=== PATIENT | male | born 1940 | race Caucasian/White ===

== ENCOUNTER 2018-10-11 06:23 | Observation (INO) | payer MEDICARE ==
[2018-10-11 07:53] LABS: Activated Partial Thrombo Time 31.6 seconds (26.0-36.3); INR 0.87 (0.77-1.02)
[2018-10-11 08:02] LABS: ABS Basophils 0 10^3/ul (0-0.2); ABS Eosinophils 0.2 10^3/ul (0-0.6); ABS Lymphocytes 1.2 10^3/ul (1.0-4.8); ABS Monocytes 0.4 10^3/ul (0-0.8); ABS Neutrophils 3.2 10^3/ul (1.5-7.7); ABS Nucleated RBC 0 10^3/ul; Eosinophil % 3.2 %; Hematocrit 44 % (42-52); Lymphocyte % 24.6 %; Mean Corpuscular HGB Conc 34 g/dl (31-36); Mean Corpuscular Hemoglobin 31 pg (27-31); Mean Corpuscular Volume 92 fL (80-94); Mean Platelet Volume 8.4 fL (7.4-10.4); Nucleated Red Blood Cells % 0; Platelet Count 157 10^3/ul (150-450); Red Blood Count 4.78 10^6/ul (4.00-5.40); Red Cell Distribution Width 13 % (10.5-15)
--- NOTE | 2018-10-11 08:04 | ED ---
Complex/Multi-Sys Presentation - HPI Summary HPI Summary: Patient presents with onset of left-sided headache and dizziness that started last evening. She reports the dizziness as more noticeable when he is up moving around. Does not seem to improve with any interventions although he reports he only tried water. He was able to sleep well last night. He describes the headache as dull and intermittent. He denies associated symptoms of change in vision, blurred vision, loss of vision, nausea, vomiting, rhinorrhea, ear congestion, sore throat, sneezing, coughing, chest pain, shortness of breath, numbness, tingling, near syncope/syncope, confusion. His reports he has not had any slurred speech or change in behavior. Furthermore, he denies any recent falls or head injury. 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 He reports his hips have been bothering him more so the past couple of days and the foot drop is gotten worse in regards to his ability to function. He has received care through physical therapy and chiropractic in the past for this issue which she reports were helpful and denies any recent injury, overuse or reason he can think for worsening of the symptoms. Has not tried anything to alleviate the symptoms nor has he followed up with his medical provider. Patient is overall healthy otherwise and denies taking any medications. He also admits he is not supposed to be taking any medications. - History Of Current Complaint Chief Complaint: EDDizziness Time Seen by Provider: 10/11/18 06:44 Hx Obtained From: Patient, Family/Community Development Manager - - Allergies/Home Medications Allergies/Adverse Reactions: Allergies Allergy/AdvReac Type Severity Reaction Status Date / Time Sulfa (Sulfonamide Allergy Unknown Verified 10/11/18 06:33 Antibiotics) Reaction Details Home Medications: Home Medications Magnesium Oxide [Magnesium] 800 mg PO DAILY 10/11/18 [History Confirmed 10/11/18 ] PMH/Surg Hx/FS Hx/Imm Hx Previously Healthy: Yes Endocrine/Hematology History: Denies: Hx Anticoagulant Therapy, Hx Blood Disorders, Hx Diabetes, Hx Thyroid Disease, Hx Anemia, Autoimmune Disease Cardiovascular History: Denies: Hx Aneurysm, Hx Congenital Heart Disease, Hx Congestive Heart Failure , Hx Coronary Artery Disease, Hx Deep Vein Thrombosis, Hx Hypercholesterolemia, Hx Hypotension, Hx Hypertension, Hx Myocardial Infarction Infectious Disease History: No Infectious Disease History: Denies: Traveled Outside the [place] in Last 30 Days - Social History Alcohol Use: Occasionally Substance Use Type: Reports: None Smoking Status (MU): Never Smoked Tobacco Review of Systems Constitutional: Negative Negative: Fever, Chills, Fatigue Eyes: Negative Negative: Photophobia, Blurred Vision, Diplopia, Drainage, Erythema ENT: Negative Negative: Dental Pain, Sore Throat, Ear Ache, Nasal Discharge Cardiovascular: Negative Negative: Palpitations, Chest Pain Respiratory: Negative Negative: Shortness Of Breath, Cough Gastrointestinal: Negative Negative: Abdominal Pain, Vomiting, Diarrhea, Nausea Genitourinary: Negative Musculoskeletal: Other - Hips have been bothering him, worsening Lt foot drop Skin: Negative Positive: Headache - Lt sided, Weakness - as above. Negative: Paresthesia, Numbness, Syncope, Slurred Speech Psychological: Normal All Other Systems Reviewed And Are Negative: Yes Physical Exam Triage Information Reviewed: Yes Vital Signs On Initial Exam: Initial Vitals Temp Pulse Resp BP Pulse Ox 97.9 F 73 16 216/89 97 10/11/18 06:25 10/11/18 06:25 10/11/18 06:25 10/11/18 06:25 10/11/18 06:25 Vital Signs Reviewed: Yes Appearance: Positive: Well-Appearing, No Pain Distress, Well-Nourished Skin: Positive: Warm, Skin Color Reflects Adequate Perfusion, Dry - no erythema , no lesions over affected area Head/Face: Positive: Normal Head/Face Inspection. Negative: Temporal Artery Tenderness Eyes: Positive: Normal, EOMI, CORKY - no photophobia, Conjunctiva Clear ENT: Positive: Normal ENT inspection, Hearing grossly normal, Pharynx normal, TMs normal, Uvula midline. Negative: Nasal congestion, Nasal drainage, Tonsillar swelling, Tonsillar exudate, Trismus, Muffled voice, Sinus tenderness Dental: Negative: Abscess @ Neck: Positive: Supple, Nontender, No Lymphadenopathy, Other: - no gross thyromegaly Respiratory/Lung Sounds: Positive: Clear to Auscultation, Breath Sounds Present Cardiovascular: Positive: Normal, RRR, S1, S2. Negative: Murmur, Rub, Leg Edema Left, Leg Edema Right Abdomen Description: Positive: Nontender, No Organomegaly, Soft Bowel Sounds: Positive: Present Musculoskeletal: Positive: Strength/ROM Intact, Limited @ - Lt dorsiflexion weak compared to Rt Neurological: Positive: Alert, Oriented to Person Place, Time, CN Intact II-III , Reflexes Intact, Finger to Nose - no ataxia, Facial Symmetry, Speech Normal, Other - Lt leg w/ mild drift. Negative: Pronator Drift Present Psychiatric: Positive: Normal Diagnostics - Vital Signs Vital Signs Temp Pulse Resp BP Pulse Ox 10/11/18 07:05 76 196/88 10/11/18 07:03 73 200/84 10/11/18 07:02 65 188/85 10/11/18 06:45 68 26 95 10/11/18 06:25 97.9 F 73 16 216/89 97 - Laboratory Lab Results: Lab Results 10/11/18 10/11/18 Range/Units 07:31 07:36 INR (Anticoag Therapy) 0.87 (0.77-1.02) APTT 31.6 (26.0-36.3) seconds Influenza A (Rapid) Negative (Negative) Influenza B (Rapid) Negative (Negative) Result Diagrams: 10/11/18 07:36 10/13/18 05:33 Lab Statement: Any lab studies that have been ordered have been reviewed, and results considered in the medical decision making process. National Institutes Of Health - NIH Scale Level of Consciousness: Alert/Keenly Responsive Ask Patient the Month and His/Her Age: Both Correct Ask Pt to Open/Close Eyes and Unhairer/Release Non-Paretic Hand: Both Correctly Best Gaze (Only Horizontal Eye Movement): Normal Visual Field Testing: No Visual Loss Facial Paresis-Pt to Smile & Close Eyes or Grimace Symmetry: Normal/Symmetrical Motor Function - Right Arm: No Drift-Holds 10 Seconds Motor Function - Left Arm: No Drift-Holds 10 Seconds Motor Function - Right Leg: No Drift-Holds 10 Seconds Motor Function - Left Leg: Drifts LT 10 seconds Limb Ataxia-Must be out of Proportion to Weakness Present: Absent Sensory (Use Pinprick to Test Arms/Legs/Trunk/Face): Normal Best Language (Describe Picture, Name Items): No Aphasia Dysarthria (Read Several Words): Normal Extinction and Inattention: No Abnormality Total Score: 1 Complex Multi-Symp Course/Dx Course Of Treatment: Pt presents Lt sided LYLE, lightheadedness which started last night. He also reports worsening of Lt foot drop which he's had for > 10 years (MRI of lumbar spine from 2005 reveals DDD of lumbar region). His BP was 200's/88 upon arrival and decreased to 180's/ 80's shortly after recheck. (NOTE : no h/o HTN nor tx rx'd). He has a score of 1 on NIH d/t Lt leg drift - otherwise presenting w/o gross neuro deficit. Last normal reported as last night re: LYLE and lightheadedness and a couple days ago re: Lt leg drop exacerbation. Labs are WNL. ECG sinus emily, 59 bpm, RBBB and no ST elevations. CXR: no acute findings. Orthostatic BP's: Ct brain w/o: "1. There is an age-indeterminate focal hypoattenuation of the right basal ganglia that could represent an age indeterminate lacunar infarct. The patient is exhibiting focal neurologic deficits than superior characterization can be made with MRI of the brain. 2. Chronic appearing findings include symmetrical involution changes and chronic microvascular disease. 3. There are nonaggressive-appearing calvarial defects as described above that are suspected to be venous lakes, arachnoid granulation, emissary vein or other benign etiology. Less likely etiologies including multiple myeloma or metastases.". Discussed case w/ Dr. Green who recommends ASA and neuro consult/admission. Discussed w/ Dr. Pineda and Dr. Lewis - pt in stable condition - will not reduce BP as it is currentlt in a good range to perfuse tissue. He is lying down resting and comfortable. Swallow eval and neuro checks q 4 hours ordered. Recommend MRI of brain as well as lumbar spine inpatient to better evaluate findings. Pt in stable and unchanged condition at time of transition of care. Pt and educated about use call staton if any changes occur. UPDATE: Pt still in ED - nursing concerned as BP jumped back up to 200's from 160's - 207/ 91 (MAP 130). Discussed w/ Dr. Lewis who recommends initiating enalaprilat 1.25mg IV and will monitor - goal is to keep pt at MAP of 91 or above. Hospitalist to eval and admit. - Diagnoses Provider Diagnoses: Lacunar infarction, Foot drop, left, Hypertension Discharge - Sign-Out/Discharge Documenting (check all that apply): Patient Departure All imaging exams completed and their final reports reviewed: Yes - Discharge Plan Condition: Stable Disposition: ADMITTED TO [facility] - Billing Disposition and Condition Condition: STABLE Disposition: Admitted to [facility]
[2018-10-11 08:05] LABS: Albumin 3.8 g/dL (3.2-5.2); Albumin/Globulin Ratio 1.3 (1-3); BUN/Creatinine Ratio 16.4 (8-20); C Reactive Protein 1.99 mg/L (<8.01); Calcium 9.5 mg/dL (8.6-10.3); EGFR Non-African American 104.7 (>60); Globulin 2.9 g/dL (2-4); Magnesium 1.9 mg/dL (1.9-2.7); Potassium 4.1 mmol/L (3.5-5.0); Total Bilirubin 0.4 mg/dL (0.2-1.0); Total Protein 6.7 g/dL (6.4-8.9)
[2018-10-11 08:10] LABS: Urine Appearance Clear; Urine Bacteria Absent (Absent); Urine Bilirubin Negative (Negative); Urine Blood 1+ (Negative); Urine Color Straw; Urine Glucose Negative (Negative); Urine Ketones Negative (Negative); Urine Nitrite Negative (Negative); Urine Protein Negative (Negative); Urine Red Blood Cell Trace(0-2/hpf) (Absent); Urine Specific Gravity 1.008 (1.010-1.030); Urine Urobilinogen Negative (Negative); Urine White Blood Cell Absent (Absent)
[2018-10-11 08:36] LABS: TSH (Thyroid Stimulating Horm) 1.77 mcIU/mL (0.34-5.60)
[2018-10-11] MEDS ORDERED: Aspirin TAB* 325 MG PO ONE (08:50)
[2018-10-11 08:56] LABS: Erythrocyte Sed Rate 8 mm/Hr (0-40)
[2018-10-11] MEDS ORDERED: Aspirin 81 mg CHEW TAB* 81 MG TAB.CHEW ONE (09:22)
[2018-10-11] MEDS ORDERED: Aspirin 81 mg CHEW TAB* 81 MG TAB.CHEW PO ONE (09:25)
[2018-10-11] MEDS: Enalaprilat IV* 1.25 MG/ML 2 ML VIAL (2.5 MG) IV ONE ×2 (11:41→12:12)
[2018-10-11 12:49] LABS: HDL Cholesterol 43.5 mg/dL
[2018-10-11] MEDS ORDERED: Acetaminophen TAB* 325 MG PO PRN (12:58)
--- NOTE | 2018-10-11 14:00 | CONS ---
NEUROLOGY CONSULTATION NOTE: DATE OF CONSULT: 10/11/18 CONSULTING PROVIDER: BI Angulo. REASON FOR CONSULT: Left leg weakness. CHIEF COMPLAINT: Lightheadedness and left leg weakness. HISTORY OF PRESENT ILLNESS: Mr. Krish Cooper is a 77-year-old fairly healthy man with history of left L5 radiculopathy diagnosed more than 10 years ago with residual left footdrop, who saw Dr. Cole in [place] and was following with Dr. Alvarado from Neurology. The patient decided not to have any lumbar spine surgery at that time and continued with physical therapy. He no longer requires an AFO but still has a foot drop. He used to have low back pain, however, that has resolved. Over the last few days, the patient stated that he has noticed new low back pain shooting down the left lower extremity. He saw his chiropractor last night and had several adjustments which seems to have helped with his back pain. However, the patient started developing lightheadedness over the last 24 hours. The lightheadedness is intermittent. It is worse with movement. He feels like he is off balance. At 5:30 this morning, the patient got up and tripped over an object using the left leg. He stated that this was unusual for him because he has been able to compensate for the left footdrop, but it seems like the left leg is getting slightly weaker over the last day. He denied any bulbar symptoms. He denied any visual disturbance. He has had a mild headache associated with the lightheadedness that he described as a dull sensation, holocephalic, intermittent, nonradiating pain. In the ED, the patient was found to have significantly elevated blood pressure. With further evaluation, he stated that he receives acupuncture and last time he saw the specialist, he had checked his blood pressure and the systolic blood pressure was in the 180s. The patient does not take any [id number] or prescribed medications, but he does take holistic [place] medications. PAST MEDICAL HISTORY: L5 radiculopathy in the past. MEDICATIONS: None. ALLERGIES: SULFA. FAMILY HISTORY: His father at age 69 due to heart attack or stroke. His mother passed naturally at age 96. 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 He is . He denied any tobacco or alcohol use. REVIEW OF SYSTEMS: A 14-point review of systems was obtained and otherwise negative except for what was mentioned in the HPI. PHYSICAL EXAM: Vitals: Temperature of 97.9, heart rate of 63, respiratory rate of 24, oxygen saturation of 97%, blood pressure of 182/87. Orthostatic vitals were obtained. Flat at 11:58 a.m., blood pressure was 187/81 with a pulse of 59; sitting upright at 12:01, blood pressure was 206/88 with a pulse of 61; and standing at 12:05, blood pressure of 219/89 and a pulse of 66. General: Well- nourished, well-developed man, in no acute distress. Head is normocephalic without obvious abnormality. Eyes: Conjunctivae/corneas are clear. Neck is supple and symmetrical with no carotid bruits. Lungs are clear to auscultation bilaterally. Cardiovascular: Regular rate and rhythm with normal S1, S2. Extremities: Normal range of motion with no cyanosis. He does have hammertoes on the left. Skin: No skin lesions or lacerations. Psych: Affect is broad and normal mood. Neurological Examination: Mental Status: Awake, alert, and oriented to person, place, time, and general circumstances. Speech and language including expression, naming, repetition, and comprehension were assessed and found to be normal. Cranial Nerves: Normal confrontation testing bilaterally. Pupils are mid range and reactive to light. Normal consensual response. Extraocular muscles are intact. No ptosis. No conjugate or asymmetric nystagmus. No facial droop. He is able to hear throughout the history process. Symmetrical palatal elevation. Normal strength against resistance. Tongue is symmetrical and midline without any atrophy. Motor Examination: No abnormal movements or pronator drift. Normal bulk and tone throughout. He had 5/5 strength throughout except for 4/5 strength to shoulder abduction on the left and elbow flexion on the left. He also had 4/5 strength at hip abduction on the left, internal rotation of the ankle on the left and 3/ 5 to dorsiflexion. Great toe extension is 3/5 on the left and 5/5 on the right. Reflexes are 1+ throughout except absent at the left knee and bilateral ankles. Plantarflexor/extensor. Sensation is intact throughout except for impaired sensation to pinprick at the left dorsum of the foot and at the lateral ankle; however, otherwise proprioception was 12 seconds on the right, 7 seconds on the left at the great toe, proprioception is intact bilaterally at the great toe. Normal [id number] and rapid alternating movements. Gait: Steppage gait on the left. DIAGNOSTIC STUDIES/LAB DATA: WBC 5.0, hemoglobin 15, hematocrit 44, platelets of 157. INR is 0.87. Sodium of 138, potassium 4.1, chloride of 104, carbon dioxide 28, BUN of 12, creatinine of 0.73, lactic acid 1.1, magnesium 1.9. AST 24, ALT 23. C-reactive protein 1.99. TSH 1.77. Urinalysis negative. 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 ASSESSMENT: Mr. Krish Cooper is a 77-year-old man, who has known left footdrop due to L5 radiculopathy in the past, who presented with lightheadedness and increased weakness in the left lower extremity. The differential diagnosis here is most likely exacerbation of his degenerative disk disease in the lumbar spine causing worsening L5 radiculopathy. In regards to the lightheadedness, I suspect this is related to the patient's uncontrolled chronic hypertension as his systolic blood pressure is in the 200s when he was assessed. I do not suspect the patient has an acute stroke, but he does have history of old stroke. However, stroke should be further evaluated given the undiagnosed remote cerebrovascular disease and the finding of left upper extremity, shoulder, and elbow extension weakness which could be related to the remote right subcortical basal ganglia infarct. However, because the patient is unaware of these deficits on the left upper extremity, and acute/ subacute stroke should be assessed. I do not think the patient had seizure or any evidence of any REAL ESTATE COORDINATOR infection. RECOMMENDATIONS: Please start the patient on aspirin 81 mg daily. Start the patient on atorvastatin 40 mg daily. Obtain an MRI of the brain, MRA head, carotid ultrasound, and 2D transthoracic echo as part of the secondary stroke prevention. The patient's current NIH Stroke Scale is 0. He is not a candidate for IV tPA or mechanical thrombectomy since the differential diagnosis of acute stroke is low at this time and given his absence of acute neurological deficits. Please control his blood pressure and maintain his systolic blood pressure between 140 to less than 180. Please obtain PT/OT/CHOPPER GUN OPERATOR consultation. He passed the bedside swallow evaluation, so proceed with advancing his diet. Please follow a low-sodium diet. DVT prophylaxis with heparin 5000 units subcutaneously every 8 hours. The patient may need a neurosurgical evaluation depending on the MRI results. I will continue to follow. TIME SPENT: I spent a total of 75 minutes and greater than 50% of that was spent directly reviewing the medical chart, obtaining history, examining the patient, education and counseling, and discussing the treatment plan as mentioned above. [id number]/[facility] #: [id number] OLVIN
--- NOTE | 2018-10-11 16:05 | HP ---
HISTORY AND PHYSICAL: DATE OF ADMISSION: 10/11/18 PROVIDER: Humaira Santos NP PRIMARY CARE PROVIDER: No primary care provider. ATTENDING PHYSICIAN WHILE IN THE HOSPITAL: Dr. Raghav Lewis * (dictated by Humaira Santos NP). CHIEF COMPLAINT: Dizziness. HISTORY OF PRESENT ILLNESS: Mr. Cooper is a 77-year-old male with no significant past medical history other than chronic left footdrop x10 years, who presented to the emergency room with complaints of feeling lightheadedness. He reports that lightheadedness started yesterday evening. He felt off balance. He denied being having a headache or loss of consciousness. He does report that he had increased issues with his left footdrop and felt that it was harder to walk. He denies fever, chills, chest pain, edema. Denies any cough, hemoptysis or shortness of breath, nausea, vomiting, or diarrhea. Denies any gross hematuria or dysuria. He does report chronic left footdrop. He denies any visual complaints, dysphagia, arthralgias, myalgias, rashes, lesions, psychosis, or anxiety. The patient denies any blurred vision, slurred speech, or any other weakness. The patient presented to the emergency room. He had a CT of the head, which showed, 1. Age indeterminate focal hypoattenuation of the right basilar ganglia that could represent an age indeterminate lacunar infarct. 2. Chronic appearing findings including symmetrical involutional changes and chronic microvascular disease. 3. There is a nonaggressive appearing calvarial defect as described above that are suspected to be venous lakes, arachnoid granulation, veins or benign vein etiology. Less likely etiologies include multiple myeloma and metastasis. The patient was found to be hypertensive in the emergency room. He was given medication to lower his blood pressure. Due to his hypertension and findings suggestive of age indeterminate infarct, we were asked to see and evaluate him for admission to rule out CVA. PAST MEDICAL HISTORY: Chronic left footdrop x10 years. PAST SURGICAL HISTORY: 1. Appendectomy. 2. Deviated septum repair. HOME MEDICATIONS: Magnesium oxide. ALLERGIES: No known drug allergies. FAMILY HISTORY: Father with a stroke at age 69, . Father with a history of diabetes. No reported cancer. SOCIAL HISTORY: Denies any tobacco. Reports rare alcohol use. Denies any illicit drug use. He is . He lives with his . Surrogate decision maker in the event he is unable to make his own decision is his . He is a full code. REVIEW OF SYSTEMS: A 14-point review of systems was completed and all pertinent positives are in the HPI. The rest of the review of systems was negative. PHYSICAL EXAMINATION GENERAL: At this time, Mr. Cooper is a 77-year-old male, he appears well, sitting on the stretcher in the emergency room. He does not appear to be in any acute distress. He is alert and oriented x3. VITAL SIGNS: Blood pressure 172/87, heart rate 72, respirations are 20, O2 saturation is 98%, temperature is 97.9. HEENT: Head is atraumatic, normocephalic. Eyes: EOMs are intact. Sclerae anicteric and not pale. Oral mucosa appears to be moist. Equal soft palate rise and fall. NECK: Supple. LUNGS: Clear to auscultation bilaterally. No wheezes, rales, or rhonchi. CARDIAC: S1, S2. Regular rate and rhythm. No murmurs, rubs, or gallops. ABDOMEN: Soft and nontender. Bowel sounds are present x4. EXTREMITIES: Handgrips are equal. He does not have any pronator drift. Finger -to- nose is intact. Radial pulses are +2 bilaterally. Lower extremities, he does have some left foot weakness. Pedal pulses are +2 bilaterally. He has no edema. NEUROLOGIC: He is awake, alert and oriented x3. Thought process intact. Cranial nerves II through XII are intact. Dlbors-vy-gonz is intact. He does have some weakness in the left foot. Soft palate rises equally. Speech is clear. Smile is equal. Tongue is midline. No facial asymmetry is noted. SKIN: Intact. LABORATORY DATA AND DIAGNOSTIC STUDIES: CT of the brain showed age indeterminate focal hypoattenuation of the right basal ganglia that could represent indeterminate lacunar infarct. Chronic appearing findings include symmetrical involutional changes and chronic microvascular disease. There is a nonaggressive appearing calvarial defect as described above that are suspected to be venous lakes, subarachnoid granulation, veins or benign etiology, less likely to include multiple myeloma and metastasis. He had a chest x-ray, radiologist's impression: No active cardiopulmonary abnormality. He had an electrocardiogram, which showed sinus bradycardia at a rate of 59 with T-wave inversions in V3, V4, V5 and lead III. Laboratory data: WBCs are 5.0, RBCs 4.78, hemoglobin 15.0, hematocrit was 44, platelet count 157. ESR was 8. INR was 0.87. Sodium 138, potassium 4.1, chloride 104, carbon dioxide was 28. Anion gap was 6. BUN was 12, creatinine 0.73. Glucose 106. Lactic acid 1.1. Calcium 9.5, magnesium 1.9. C-reactive protein was 1.99. ASTs were 24, ALTs were 23, alkaline phosphatase was 59. Triglycerides were 79, cholesterol 164, LDL was 105, HDL was 43. TSH was 1.77. Urine color was straw, pH was 9, specific gravity 1.008. Urine protein and ketones were negative. Blood was 1+. Nitrites were negative. Bilirubin, urobilinogen, and leukocyte esterase were all negative. Urine wbc's were absent , rbc's were trace, bacteria was absent. Flu A and B were negative. ASSESSMENT AND PLAN: Mr. Cooper is a 77-year-old male with no significant past medical history other than chronic left footdrop, who presented to the emergency room with dizziness. We were asked to see and evaluate him due to the dizziness and concern for cerebrovascular accident. He will be admitted under observation for: 1. Rule out cerebrovascular accident. The patient did present with some dizziness. He did have a CT of the head that was concerning for age indeterminate subacute infarct in the right basal ganglia. Due to these concerns, the patient was seen by Neurology, who has recommended a full neurological workup. He will have an MRI of the brain. He will have an MRA of the head. He will have carotid Doppler. He will have MRI of the lumbar spine due to the left footdrop. He did receive aspirin 325 in the emergency room. He will be placed on atorvastatin and aspirin 81 mg p.o. daily. I will start him on captopril 12.5 mg p.o. t.i.d. as per Dr. Pineda's recommendation. We will allow for permissive hypertension between 140 to 180. We will monitor him on telemetry. He will have neuro checks q.2 hours. We will get a PT evaluation. He will have a bedside swallow evaluation. He will also have a transthoracic echocardiogram with bubble study. 2. Hypertension. We will control his blood pressure, but we will allow for permissive hypertension with a systolic blood pressure between [address] Pineda from Neurology's recommendations. I will start him on captopril 12.5 mg p.o. t.i.d. We will get a swallow evaluation, PT/OT. 3. DVT prophylaxis. He will be placed on heparin subcu. 4. Code status: He is a full code. 5. Fluids, electrolytes, and nutrition: He can have a heart healthy, decaf okay diet. TIME SPENT: Time spent on this admission was 60 minutes, greater than half of that time was spent with the patient obtaining my history and physical, the other half of the time was spent going over my plan of care and implementing my plan of care. I have discussed this with my attending, Dr. Raghav Lewis; he is in agreement with my plan. HUMAIRA SANTOS, GAS MAKER HELPER [id number]/CPS #: [id number] OLVIN
[2018-10-11] MEDS: Heparin VIAL(*) 5000 UNITS/ML VIAL (FIVE THOUSAND) SUBCUT SCH ×2 (16:13→20:44)
[2018-10-11] MEDS: Captopril TAB* 12.5 MG PO SCH ×2 (16:14→20:45)
--- NOTE | 2018-10-11 19:16 | ECHO ---
Patient: NOBLE THORNE [facility] Rec#: [id number] : 1940 Date: 10/11/2018 Age: 77y Height: 173 cm / 68.1 in Weight: 75 kg / 165.3 lbs Sex: M BSA: 1.89 Room#: [facility] Admit Date#: 10/11/2018 Type: Inpatient Referring: Traci Pineda Reading: Hemal Reynolds DO Candy Feeder: Meli Love RDCS,RDMS CC: Lavinia Nguyen MD Transthoracic Echocardiogram Indication: CVA BP: 182/87 HR: 55 Rhythm: Bradycardia Findings History: CVA Technical Comments: The study quality is fair. Left Ventricle: The left ventricular chamber size is normal. Moderate concentric left ventricular hypertrophy is observed. Global left ventricular wall motion and contractility are within normal limits. There is normal left ventricular systolic function. The estimated ejection fraction is 55-60%. Abnormal left ventricular diastolic filling is observed, consistent with impaired relaxation. Left Atrium: The left atrium is moderately dilated. Right Ventricle: The right ventricular chamber size and systolic function are within normal limits. Right Atrium: The right atrium appears normal. The bubble study is negative. A patent foramen ovale is not demonstrated with color Doppler and agitated contrast. Aortic Valve: The aortic valve structure is not well visualized.with regards to cusp attainment, appears bicuspid (RCC/NCC) The aortic valve is trileaflet. The aortic valve leaflets are mildly thickened. There is moderate aortic regurgitation.Unable to calculate accurate p1/2t due to off-axis acquisition. Early diastolic flow reversal in descending aorta There is no evidence of aortic stenosis.by doppler evaluation that may be underestimated due to non-parallel doppler alignment Mitral Valve: The mitral valve leaflets do not appear thickened. There is trace to mild mitral regurgitation. There is no evidence of mitral stenosis. Tricuspid Valve: The tricuspid valve leaflets are normal. There is no evidence of tricuspid valve regurgitation. Unable to estimate the right ventricular systolic pressure. Pulmonic Valve: The pulmonic valve appears normal. There is trace to mild pulmonic regurgitation. Pericardium: There is no significant pericardial effusion. Aorta: There is mild dilatation of the ascending aorta. There is no dilatation of the aortic arch. There is mild dilatation of the aortic root. Pulmonary Artery: The main pulmonary artery is not well visualized. Venous: The inferior vena cava appears normal in size. There is a greater than 50% respiratory change in the inferior vena cava dimension. Contrast: Intravenous agitated saline contrast was used to assess intracardiac shunting. Conclusions The left ventricular chamber size is normal. Moderate concentric left ventricular hypertrophy is observed. Global left ventricular wall motion and contractility are within normal limits. There is normal left ventricular systolic function. The estimated ejection fraction is 55-60%. The left atrium is moderately dilated. The right ventricular chamber size and systolic function are within normal limits. The bubble study is negative. The aortic valve structure is not well visualized.with regards to cusp attainment, possible bicuspid (RCC/NCC) vs. calcified and restricted RCC associated with moderate aortic regurgitation. There is no evidence of aortic stenosis by doppler evaluation that may be underestimated There is mild dilatation of the aortic root and ascending aorta. None prior for comparison at time of interpretation Measurements Name Value Normal Range RVIDd (AP) 2D 3.2 cm (0.9 - 2.6) IVSd (2D) 1.6 cm (0.6 - 1) LVPWd (2D) 1.5 cm (0.6 - 1) LVIDd (2D) 4.8 cm (3.6 - 5.4) LVIDs (2D) 3.7 cm - LV FS (2D) 23 % (25 - 45) Aortic Annulus 2.3 cm (1.4 - 2.6) Ao root diameter (2D) 3.6 cm (2.1 - 3.5) Ascending Ao 3.9 cm (2.1 - 3.4) Aortic arch 3 cm (1.8 - 3.4) LA dimension (AP) 2D 5.4 cm (2.3 - 3.8) LAd ISD 4CH 5.6 cm (2.9 - 5.3) Name Value Normal Range LA ESV BP (A/L) index 51 ml/m2 - Name Value Normal Range MV E-wave Vmax 0.5 m/sec - MV deceleration time 140 msec - MV A-wave Vmax 0.7 m/sec - MV E:A ratio 0.6 ratio - LV septal e' Vmax 0.04 m/sec - LV lateral e' Vmax 0.03 m/sec - LV E:e' septal ratio 13 ratio - LV E:e' lateral ratio 16 ratio - Name Value Normal Range AV Vmax 1.5 m/sec - AV VTI 32 cm - AV peak gradient 9 mmHg - AV mean gradient 5 mmHg - LVOT Vmax 0.9 m/sec - LVOT VTI 19 cm - LVOT peak gradient 3.2 mmHg - LVOT mean gradient 2 mmHg - JUAN Vmax 0.7 m/sec - Name Value Normal Range RAP 8 mmHg - IVC diameter 1.2 cm - Name Value Normal Range PV Vmax 0.6 m/sec - PV peak gradient 1.4 mmHg -
[2018-10-11] MEDS: Atorvastatin* 40 MG TAB PO SCH (20:44)
[2018-10-11] MEDS ORDERED: Clopidogrel TAB* 75 MG PO ONE (21:28)
[2018-10-12] MEDS: Heparin VIAL(*) 5000 UNITS/ML VIAL (FIVE THOUSAND) SUBCUT SCH ×3 (05:55→20:43)
[2018-10-12] MEDS: Aspirin 81 mg CHEW TAB* 81 MG TAB.CHEW PO SCH (08:12)
[2018-10-12] MEDS: Clopidogrel TAB* 75 MG PO SCH (08:12)
[2018-10-12] MEDS ORDERED: amLODIPine TAB* 5 MG PO SCH (09:00)
[2018-10-12] MEDS ORDERED: Captopril TAB* 25 MG PO SCH (09:00)
[2018-10-12] MEDS: Cyanocobalamin TAB* 500 MCG PO SCH (09:07)
[2018-10-12] MEDS: Lisinopril TAB* 10 MG PO SCH (09:07)
--- NOTE | 2018-10-12 15:54 | PN ---
Subjective Date of Service: 10/12/18 Length of Stay: 1 Days Neurology is following for the treatment and evaluation of stroke. Interval History: He has no dizziness or lightheadedness. The left leg does seem slightly weaker but is better than yesterday. He has chronic left foot drop. He denied any back pain. Review of Systems: Denied CP, SOB, or palpitations. Objective Active Medications: Acetaminophen (Tylenol Tab*) 650 mg PO Q4H PRN PRN Reason: FEVER/PAIN Amlodipine Besylate (Norvasc Tab*) 5 mg PO DAILY [facility] Last Admin: 10/12/18 09:07 Dose: 5 mg Aspirin (Aspirin 81 Mg Chew Tab*) 81 mg PO DAILY [facility] Last Admin: 10/12/18 08:12 Dose: 81 mg Atorvastatin Calcium (Lipitor*) 40 mg PO 2100 [facility] Last Admin: 10/11/18 20:44 Dose: 40 mg Clopidogrel Bisulfate (Plavix Tab*) 75 mg PO DAILY [facility] Last Admin: 10/12/18 08:12 Dose: 75 mg Cyanocobalamin (Vitamin B12 Tab*) 1,000 mcg PO DAILY [facility] Last Admin: 10/12/18 09:07 Dose: 1,000 mcg Heparin Sodium (Porcine) (Heparin Vial(*)) 5,000 units SUBCUT Q8HR [facility] Last Admin: 10/12/18 14:36 Dose: 5,000 units Lisinopril (Prinivil Tab*) 10 mg PO DAILY [facility] Last Admin: 10/12/18 09:07 Dose: 10 mg Vital Signs 10/12/18 10/12/18 10/12/18 03:45 07:31 07:59 Temperature 98.1 F 98.1 F Pulse Rate 53 59 Respiratory 16 16 16 Rate Blood Pressure 181/63 189/84 (mmHg) O2 Sat by Pulse 96 Oximetry 10/12/18 10/12/18 10/12/18 08:19 11:04 15:35 Temperature 97.6 F 97.9 F Pulse Rate 59 57 Respiratory 16 20 Rate Blood Pressure 192/78 187/73 179/63 (mmHg) O2 Sat by Pulse 99 98 Oximetry Intake and Output Last 24 Hours 10/10/18 10/11/18 10/12/18 10/13/18 06:59 06:59 06:59 06:59 Intake Total 110 520 Balance 110 520 Weight 165 lb 175 lb 6.4 oz Intake: Oral 110 520 Other: # Bowel Movements 1 # Voids 3 Oxygen Devices in Use Now: None Neurology Exam: General: Well nourished man in no acute distress. HEENT: Normocephalic/atraumatic, sclera anicteric, mucous membranes moist Neck: Supple Chest: Clear to auscultation bilaterally Cardiovascular: Regular rate and rhythm without murmurs, rubs, gallops Extremities: No clubbing, cyanosis, or edema Neurological Findings: Awake, Alert, Oriented x3 Speech: fluent without dysrhythmia, repetition intact Cranial Nerve: PEERL, EOM intact, VFF, no nystagmus, face symmetric bilaterally , facial sensation intact, hearing intact to finger rub bilaterally, palate elevates symmetrically, tongue midline, SCM and Trapezius s/s. Motor: s/s throughout, proximal and distal extremities x4 tone/bulk normal except for left dorsiflexion weakness 2-3/5. 4/5 weakness with hip adduction. Sensation: intact to LT/PP bilaterally upper and lower extremities Deep Tendon Reflex: 1+ throughout on the right and 2+ on the left with 0 at the ankles bilaterally. Finger to nose, rapid alternating movements intact without tremor, no dysdiadochokinesia Gait: steppage gait on the left. Result Diagrams: 10/11/18 07:36 10/11/18 07:36 Additional Lab and Data: Cyanocobalamin: 210 TSH: 1.77 LDL: 105 HDL: 43 Total cholesterol: 164 Microbiology and Other Data: Microbiology 10/11/18 07:21 Influenza Types A,B Antigen - Final Nasal Specimen received for Influenza A/B Molecular testing Diagnostic Imaging: MRI brain without contrast completed on 10/11/2018: acute right parietal bui radiata ischemic stroke. 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 MRA head without contrast: mild short segment narrowing of the mid basilar artery. 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 2D TTE:55-60%. Negative bubble study. Assessment/Plan 1. 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 He was not a candidate for IV tPA due to low NIHSS and outside the therapeutic window. Recommendations: - We discussed secondary stroke measures and counseled the patient on the importance of taking anti-platelet therapy regularly. - Aspirin 81 mg and Plavix 75 mg daily for 90 days (intracranial stenosis) then switch to aspirin 81 mg monotherapy. - Atorvastatin 40 mg nightly - No need for PT/OT treatment. Pt passed bedside swallow evaluation - Follow-up with me in 4-6 weeks. 2. L4-5 radiculopathy on the left- chronic. This is the cause of his foot drop. Pt is interested in further evaluation by a surgeon. Please send a referral to Dr. Rosales. Recommend further evaluation as outpatient. 3. New diagnosis of hypertension- Norvasc 5 mg daily and Lisinopril 10 mg daily. Goal is higher range of normal (120-<160 mmHg). 4. Lightheadedness- most likely related to hypertensive urgency. Improved. 5. Lower range of B12 level- started cyanocobalamine 1,000 mcg daily. Follow-up with me as outpatient. We will arrange an appointment. Time spent: 25 minutes of which >50% was spent on reviewing the records, examination, and discussing the above recommended treatments.
--- NOTE | 2018-10-12 17:01 | PN ---
Subjective Date of Service: 10/12/18 Interval History: Patient is feeling well today, no residual dizziness except for one episode in the AM. Patient denies CP, SOB, F/C, N/V, abdominal pain, diarrhea, dysuria, or other pain. Family History: Unchanged from Admission Social History: Unchanged from Admission Past Medical History: Unchanged from Admission Objective Active Medications: Acetaminophen (Tylenol Tab*) 650 mg PO Q4H PRN PRN Reason: FEVER/PAIN Amlodipine Besylate (Norvasc Tab*) 5 mg PO DAILY [facility] Last Admin: 10/12/18 09:07 Dose: 5 mg Aspirin (Aspirin 81 Mg Chew Tab*) 81 mg PO DAILY [facility] Last Admin: 10/12/18 08:12 Dose: 81 mg Atorvastatin Calcium (Lipitor*) 40 mg PO 2100 [facility] Last Admin: 10/11/18 20:44 Dose: 40 mg Clopidogrel Bisulfate (Plavix Tab*) 75 mg PO DAILY [facility] Last Admin: 10/12/18 08:12 Dose: 75 mg Cyanocobalamin (Vitamin B12 Tab*) 1,000 mcg PO DAILY [facility] Last Admin: 10/12/18 09:07 Dose: 1,000 mcg Heparin Sodium (Porcine) (Heparin Vial(*)) 5,000 units SUBCUT Q8HR [facility] Last Admin: 10/12/18 14:36 Dose: 5,000 units Lisinopril (Prinivil Tab*) 10 mg PO DAILY [facility] Last Admin: 10/12/18 09:07 Dose: 10 mg Vital Signs - 8 hr 10/12/18 10/12/18 11:04 15:35 Temperature 97.6 F 97.9 F Pulse Rate 59 57 Respiratory 16 20 Rate Blood Pressure 187/73 179/63 (mmHg) O2 Sat by Pulse 99 98 Oximetry Oxygen Devices in Use Now: None Appearance: Patient is a 77yo male who appears stated age and is sitting in the bed in [facility]. Eyes: No Scleral Icterus, PERRLA Ears/Nose/Mouth/Throat: NL Teeth, Lips, Gums, Clear Oropharnyx, Mucous Membranes Moist Neck: NL Appearance and Movements; NL JVP, Trachea Midline Respiratory: Symmetrical Chest Expansion and Respiratory Effort, Clear to Auscultation Cardiovascular: NL Sounds; No Murmurs; No JVD, RRR, No Edema Abdominal: NL Sounds; No Tenderness; No Distention, No Hepatosplenomegaly Lymphatic: No Cervical Adenopathy Extremities: No Edema, No Clubbing, Cyanosis Skin: No Rash or Ulcers, No Nodules or Sclerosis Neurological: Alert and Oriented x 3, NL Sensation, NL Muscle Strength and Tone , - - CN II-XII intact. Result Diagrams: 10/11/18 07:36 10/11/18 07:36 Additional Lab and Data: Cyanocobalamin: 210 TSH: 1.77 LDL: 105 HDL: 43 Total cholesterol: 164 Microbiology and Other Data: Microbiology 10/11/18 07:21 Influenza Types A,B Antigen - Final Nasal Specimen received for Influenza A/B Molecular testing Diagnostic Imaging: MRI brain without contrast completed on 10/11/2018: acute right parietal bui radiata ischemic stroke. 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 MRA head without contrast: mild short segment narrowing of the mid basilar artery. 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 2D TTE:55-60%. Negative bubble study. Assess/Plan/Problems-Billing 1. 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 He was not a candidate for IV tPA due to low NIHSS and outside the therapeutic window. Recommendations: - We discussed secondary stroke measures and counseled the patient on the importance of taking anti-platelet therapy regularly. - Aspirin 81 mg and Plavix 75 mg daily for 90 days (intracranial stenosis) then switch to aspirin 81 mg monotherapy. - Atorvastatin 40 mg nightly - No need for PT/OT treatment. Pt passed bedside swallow evaluation - Follow-up with me in 4-6 weeks. 2. L4-5 radiculopathy on the left- chronic. This is the cause of his foot drop. Pt is interested in further evaluation by a surgeon. Please send a referral to Dr. Rosales. Recommend further evaluation as outpatient. 3. New diagnosis of hypertension- Norvasc 5 mg daily and Lisinopril 10 mg daily. Goal is higher range of normal (120-<160 mmHg). 4. Lightheadedness- most likely related to hypertensive urgency. Improved. 5. Lower range of B12 level- started cyanocobalamine 1,000 mcg daily. Follow-up with me as outpatient. We will arrange an appointment. Time spent: 25 minutes of which >50% was spent on reviewing the records, examination, and discussing the above recommended treatments. - Patient Problems (1) CVA (cerebral vascular accident) Current Visit: Yes Status: Acute Code(s): I63.9 - CEREBRAL INFARCTION, UNSPECIFIED SNOMED Code(s): 383235616 Comment: - Small CVA in the basal ganglia likely related to uncontrolled HTN - Start on ASA, Plavix to be continued for 3 months - Started on Lipitor - Echo unremarkable, no Afib on tele. 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 (4) Full code status Current Visit: Yes Status: Acute Code(s): Z78.9 - OTHER SPECIFIED HEALTH STATUS SNOMED Code(s): 889651411 (5) DVT prophylaxis Current Visit: Yes Status: Acute Code(s): JXV7677 - SNOMED Code(s): 455623199 Comment: - Heparin SubQ. Status and Disposition: Inpatient for CVA and Hypertensive urgency, likely discharge tomorrow.
[2018-10-12] MEDS: Atorvastatin* 40 MG TAB PO SCH (20:43)
[2018-10-13 06:20] LABS: Calcium 9.3 mg/dL (8.6-10.3); EGFR Non-African American 113.7 (>60); Potassium 4.2 mmol/L (3.5-5.0)
[2018-10-13] MEDS: Heparin VIAL(*) 5000 UNITS/ML VIAL (FIVE THOUSAND) SUBCUT SCH (06:28)
[2018-10-13] MEDS ORDERED: amLODIPine TAB* 5 MG PO SCH (09:00)
[2018-10-13] MEDS ORDERED: Hydrochlorothiazide TAB* 25 MG PO SCH (09:00)
[2018-10-13] MEDS ORDERED: Hydrochlorothiazide TAB* 25 MG ONE (09:45)
[2018-10-13] MEDS: Cyanocobalamin TAB* 500 MCG PO SCH (09:49)
[2018-10-13] MEDS: Lisinopril TAB* 10 MG PO SCH (09:50)
[2018-10-13] MEDS: Clopidogrel TAB* 75 MG PO SCH (09:50)
[2018-10-13] MEDS: Aspirin 81 mg CHEW TAB* 81 MG TAB.CHEW PO SCH (09:50)
[2018-10-13 11:25] VITALS: BP 151/75
--- NOTE | 2018-10-14 02:58 | DS ---
CC: Dr. Lavinia Nguyen; Dr. Pineda; Dr. Reyna Rosales * DISCHARGE SUMMARY: DATE OF ADMISSION: 10/11/18 DATE OF DISCHARGE: 10/13/18 PRIMARY CARE PROVIDER: Dr. Lavinia Nguyen. OUTPATIENT NEUROLOGIST: Dr. Pineda. ATTENDING PROVIDER: Dr. Lewis * (DICTATED BY BI COOPER) PRIMARY DISCHARGE DIAGNOSES: 1. Cerebrovascular accident. 2. Hypertensive urgency. SECONDARY DISCHARGE DIAGNOSIS: Lumbar spinal stenosis with chronic footdrop. STUDIES DONE WHILE IN THE HOSPITAL: Electrocardiogram from 10/11/18 shows right bundle-branch block, T-wave inversions in the anterior leads, left atrial enlargement, possible left ventricular hypertrophy, QTc of 467, rate of 59. Brain CT read as indeterminate focal hypoattenuation of the right basal ganglia that could represent indeterminate lacunar infarction. This patient exhibiting neurological deficits MRI, symmetric involutional change and chronic microvascular disease. Brain MRI read as small focus of restricted diffusion in the right parietal bui radiata concerning for acute infarct. Lumbar spine MRI read as advanced multilevel spondylotic change of the lumbar spine, most pronounced from L4-S1, likely compression of the exiting L4 nerve root, impingement on the exiting L5 nerve root. Carotid Doppler study read as normal carotid artery ultrasound. Head MRI read as intracranial right vertebral artery not visualized, possibly occluded, type, left HAND WEAVER, moderate to severe short segment narrowing of proximal left HAND WEAVER and short segment narrowing of the mid basilar artery. Transthoracic echocardiogram read as left ventricular chamber size normal, moderate concentric left ventricular hypertrophy, global left ventricular wall motion contractility within normal limits. Normal left ventricular systolic function, estimated ejection fraction 55% to 60%. Left atrium is mildly dilated. Right ventricular chamber size and systolic function within normal limits. Bubble study is negative. The aortic valve structure is not well visualized with regards to cusp attainment, possible bicuspid versus calcified and restricted, RCC associated moderate aortic regurgitation. There is no evidence of aortic stenosis by Doppler evaluation. Mild dilatation of the aortic root and ascending aorta. MEDICATIONS AT DISCHARGE: 1. Magnesium oxide 800 mg p.o. daily. 2. Tylenol 650 mg p.o. q.4 hours as needed. 3. Amlodipine 10 mg p.o. daily. 4. Aspirin 81 mg p.o. daily. 5. Atorvastatin 40 mg p.o. daily. 6. Clopidogrel 75 mg p.o. daily. 7. Vitamin B12 1000 mcg p.o. daily. 8. Hydrochlorothiazide 12.5 mg p.o. daily. 9. Lisinopril 10 mg p.o. daily. HOSPITAL COURSE: This is a brief summary of the patient's presentation. For more details, please see the history and physical from Susi Santos NP on 10/11/18. In brief, the patient is a 77-year-old male with past medical history significant for the above, who presented to the emergency department with dizziness that started in the evening of 10/10/18. He felt off balance. Denied having a headache or loss of consciousness. He felt that it was harder to walk with exacerbation of left footdrop. He had no other significant complaints. He came in. He continued to have dizziness, particularly with standing, was found to be markedly hypertensive, systolic blood pressures over 200 and was found to have had a CT scan as above. The patient was seen in consultation by Dr. Traci Pineda of Neurology, who recommended workup for CVA, which showed infarct as above. The patient also had a lumbar spine MRI, which was read as above, which was consistent with his history of left side footdrop. The patient was previously evaluated by a surgeon and was not offered surgery at that time. The patient was admitted, had other studies as above, show no signs for embolic stroke. The patient's blood pressure remained elevated throughout the first day of his hospitalization. The patient was started on antihypertensives as above with slow decrease in his blood pressure. The patient 's blood pressure is 151/75. On most recent reading at discharge, the patient was asymptomatic except for a slight residual dizziness and left footdrop at his baseline. The patient was stable enough for discharge on 10/13/18. PHYSICAL EXAM ON THE DAY OF DISCHARGE: General: The patient is a 77-year-old male, who appears stated age and sitting comfortably on bed, in no acute distress. Vital Signs: At the time of discharge, temperature 97.1, pulse rate 59, respiratory rate 20, oxygen saturation 97% on room air, blood pressure 151/ 75. HEENT: Head: Normocephalic, atraumatic. Sclerae anicteric. No conjunctival injection. Nasal mucosa moist. Oral mucosa moist. No pharyngeal erythema, discharge, or exudate. Neck: Supple, nontender. No lymphadenopathy. No carotid bruits auscultated. No JVD. Cardiac: Regular rate and rhythm. Grade 2/6 systolic ejection murmur heard best at the right upper sternal border. Pulses are 2+ in the bilateral dorsalis pedis, posterior tibialis, and radial areas. Respiratory: Clear to auscultation bilaterally. No wheezes, rales, or rhonchi. Good air exchange bilaterally. Abdomen: Soft, nontender, nondistended. Bowel sounds present and normoactive in all 4 quadrants. No hepatosplenomegaly. No abdominal bruits auscultated. No hepatojugular reflux. Genitourinary: No suprapubic or CVA tenderness. Skin: Clean, dry, and intact. No rash. Neuro: Cranial nerves II through XII are intact. Cerebellar testing performed without difficulty. Strength is 5/5 bilaterally in the upper extremities. Strength is 3/5 with dorsiflexion of the left foot. Strength 4/5 with plantarflexion of the left foot. No other focal neurological deficits. Psychiatric: Pleasant and cooperative. DISCHARGE PLAN: The patient will be discharged to home. The patient has suboptimal blood pressure control at this time; however, the patient has been started on 3 different medications and no longer has a dangerous level of hypertension. The patient has been instructed to take his blood pressure twice daily and followup with his primary care provider within 1 week for titration, either up or down of his medications. The patient has been instructed what to do with low or high blood pressure readings. The patient has been instructed to stop his hydrochlorothiazide for low readings and to call his primary care provider for up titration of his medications with persistently high readings. The patient has been instructed to follow up with a neurosurgeon to discuss treatment of his lumbar spinal stenosis. The patient was given the number of Dr. Reyna Rosales and may also follow up with his neurosurgeon who previously assessed him in [place]. The patient had low vitamin B12 level while in the hospital which is contributing to the symptoms, will be supplemented. The patient had elevated LDL cholesterol at 105. Given his stroke and intracranial stenosis, the patient should have a goal of 70. The patient was started on atorvastatin. The patient was started on Plavix and aspirin, which he could be continued for 3 months unless contraindication occurs. The patient had no other laboratory abnormalities or vital sign abnormalities while in the hospital. The patient should engage in activity as tolerated and have a heart-healthy diet without caffeine. TIME SPENT: Approximately 60 minutes was spent on the discharge of this patient , 30 of which was spent [id number] with the patient obtaining history and physical and discussing treatment plan. BI COOPER [id number]/[facility] #: [id number] OLVIN
== END 2018-10-13 13:54 | disposition home or self-care (01) ==
LOC: ED 06:23 → MEDTELE 12:58
PROVIDERS: ADMIT Student in an Organized Health Care Education/Training Program; ATTEND Student in an Organized Health Care Education/Training Program
DX: I63.9 Cerebral infarction, unspecified (principal); I16.0 Hypertensive urgency; M48.061 Spinal stenosis, lumbar region without neurogenic claudication; Z79.82 Long term (current) use of aspirin; R42 Dizziness and giddiness; R51 Headache; Z88.2 Allergy status to sulfonamides; M21.372 Foot drop, left foot; M54.17 Radiculopathy, lumbosacral region
CPT/HCPCS: 36415; 70450; 70544; 70551; 71045; 72148; 80048; 80053; 80061; 81003; 81015; 82607; 83605; 83735; 84443; 84484; 85025; 85610; 85652; 85730; 86140; 93005; 93306; 93880; 96372; 96374; 99285; A9270-GY; G0378; G8978-GP-CH; G8979-GP-CH; G8980-GP-CH; J1644

== ENCOUNTER 2019-07-13 11:55 | Emergency (ER) | payer MEDICARE, BC ==
[2019-07-13 12:18] VITALS: BP 134/67
--- NOTE | 2019-07-13 12:39 | UC ---
Skin Complaint HPI - HPI Summary HPI Summary: started benzonatate for cold symps and within hours he experienced itchy hives on lower back. over the next 2 days hives have been spreading over back, buttocks and today around stomach. no diff swallowing or breathing. did take benadryl 25mg x 1 yesterday which did help relieve itch and make some hives resolve. - History of Current Complaint Chief Complaint: UCSkin Time Seen by Provider: 07/13/19 12:24 Stated Complaint: HIVES Hx Obtained From: Patient, Family/[employer] Onset/Duration: Gradual Onset Onset Severity: Moderate Pain Intensity: 8 Location: Generalized - over trunk Character: Pruritus, Hives Aggravating Factor(s): Touch Alleviating Factor(s): Antihistamines Associated Signs & Symptoms: Positive: Negative. Negative: Nausea, Vomiting, Cough, Wheezing, Chest Pain, Throat Tightening, Lightheadedness - Allergy/Home Medications Allergies/Adverse Reactions: Allergies Allergy/AdvReac Type Severity Reaction Status Date / Time Sulfa (Sulfonamide Allergy Unknown Verified 10/11/18 06:33 Antibiotics) Reaction Details Home Medications: Home Medications Acetaminop/Codeine 30 MG TAB* [Tylenol/Codeine 30 MG TAB*] 07/13/19 [History] diPHENhydraMINE PO* [Benadryl PO 25 MG TAB*] 07/13/19 [History] PMH/Surg Hx/FS Hx/Imm Hx Previously Healthy: Yes Endocrine History: Dyslipidemia Cardiovascular History: Hypertension, Other - CVA Other History Of: Anticoagulant Therapy - Surgical History Surgical History: Yes Surgery Procedure, Year, and Place: DEVIATED SEPTUM 1955. APPENDECTOMY 1964 - Family History Known Family History: Positive: Hypertension - Social History Occupation: Retired Lives: With Family Alcohol Use: Occasionally Substance Use Type: None Smoking Status (MU): Never Smoked Tobacco Review of Systems All Other Systems Reviewed And Are Negative: Yes Constitutional: Positive: Negative Skin: Positive: Rash Respiratory: Positive: Negative. Negative: Shortness Of Breath Neurological: Positive: Negative. Negative: Headache Psychological: Positive: Negative Is Patient Immunocompromised?: No Physical Exam Triage Information Reviewed: Yes Appearance: Well-Appearing, No Pain Distress, Well-Nourished Vital Signs: Initial Vital Signs Temp 98.6 F 07/13/19 12:10 Pulse 89 07/13/19 12:10 Resp 18 07/13/19 12:10 BP 134/67 07/13/19 12:10 Pulse Ox 98 07/13/19 12:10 Vital Signs Reviewed: Yes Eyes: Positive: Conjunctiva Clear ENT: Positive: Pharynx normal Neck exam: Normal Neck: Positive: Supple Respiratory Exam: Normal Respiratory: Positive: Lungs clear Cardiovascular Exam: Normal Cardiovascular: Positive: RRR Neurological Exam: Normal Psychological Exam: Normal Skin: Positive: Rashes - fading hives spread over back, new hives noted chest and abdomen Course/Dx - Differential Diagnoses - Skin Complaint Differential Diagnoses: Allergic Reaction, Cellulitis, Drug Rash, Poison Tiffany - Diagnoses Provider Diagnosis: Allergic reaction Discharge ED - Sign-Out/Discharge Documenting (check all that apply): Patient Departure All imaging exams completed and their final reports reviewed: No Studies - Discharge Plan Condition: Stable Disposition: HOME Patient Education Materials: Urticaria (ED) Referrals: Varun Maldonado MD [Primary Care Provider] - 2 Days (for recheck ) Additional Instructions: STOP benzonatate cough gels start benadryl 50mg every 6-8 hours for itchy rash Report to ER if you experience worsening symptoms or difficulty breathing or swallowing - Billing Disposition and Condition Condition: STABLE Disposition: Home
== END 2019-07-13 12:54 | disposition home or self-care (01) ==
LOC: UCEAST 11:55
DX: L50.0 Allergic urticaria (principal); T48.3X5A Adverse effect of antitussives, initial encounter; I10 Essential (primary) hypertension; Z88.2 Allergy status to sulfonamides; Y92.9 Unspecified place or not applicable
CPT/HCPCS: 99211; G0463

== ENCOUNTER 2020-10-20 08:21 | Observation (INO) ==
[2020-10-20 09:15] LABS: ABS Eosinophils 0.2 10^3/ul (0-0.6); ABS Lymphocytes 1.4 10^3/ul (1.0-4.8); ABS Monocytes 0.5 10^3/ul (0-0.8); ABS Neutrophils 3.4 10^3/ul (1.5-7.7); Eosinophil % 3.5 %; Hematocrit 42 % (42-52); Hemoglobin 14.2 g/dL (14.0-18.0); Lymphocyte % 24.8 %; Mean Corpuscular HGB Conc 34 g/dL (31-36); Mean Corpuscular Hemoglobin 32 pg (27-31); Mean Corpuscular Volume 94 fL (80-94); Mean Platelet Volume 8.4 fL (7.4-10.4); Nucleated Red Blood Cells % 0.1; Platelet Count 162 10^3/uL (150-450); Red Blood Count 4.48 10^6 /uL (4.18-5.48); Red Cell Distribution Width 13 % (10-15); White Blood Count 5.5 10^3/uL (3.5-10.8)
[2020-10-20 09:33] LABS: Albumin 3.9 g/dL (3.2-5.2); Albumin/Globulin Ratio 1.4 (1-3); BUN/Creatinine Ratio 27.8 (8-20); Calcium 9.2 mg/dL (8.6-10.3); EGFR African American 128.1 (>60); EGFR Non-African American 105.9 (>60); Globulin 2.7 g/dL (2-4); Total Bilirubin 0.7 mg/dL (0.2-1.0); Total Protein 6.6 g/dL (6.4-8.9)
[2020-10-20] MEDS ORDERED: Iohexol 350 (CONTRAST) 500 ML MDV IV ONE (09:36)
[2020-10-20] MEDS: Enoxaparin 40 MG/0.4 ML SYR SUBCUT SCH (15:31)
[2020-10-21 08:08] LABS: HDL Cholesterol 38.8 mg/dL
[2020-10-21 08:21] VITALS: BP 141/66
[2020-10-21] MEDS: Enoxaparin 40 MG/0.4 ML SYR SUBCUT SCH (13:41)
== END 2020-10-21 14:46 | disposition home or self-care (01) ==
LOC: MERGE 08:21 → MEDTELE 08:21 → ED 08:21 → MEDTELE 14:25
PROVIDERS: ADMIT Hospitalist; ATTEND Internal Medicine

== ENCOUNTER 2023-05-15 15:28 | Observation (INO) ==
[2023-05-15 17:13] LABS: ABS Eosinophils 0.1 10^3/uL (0.0-0.5); ABS Lymphocytes 1.5 10^3/uL (1.0-4.8); ABS Monocytes 0.4 10^3/uL (0.0-1.1); ABS Neutrophils 4.2 10^3/uL (1.5-7.6); ABS Nucleated RBC 0.01 10^3/ul; Eosinophil % 1.2 %; Hematocrit 33.3 % (38-53); Hemoglobin 11.3 g/dL (13.2-16.3); Mean Corpuscular Hemoglobin 31.6 pg (27-33); Mean Corpuscular Hgb Conc 34.1 g/dL (31-36); Mean Corpuscular Volume 92.7 fL (80-97); Nucleated Red Blood Cells % 0.2 /100 WBC (0.0-0.4); Platelet Count 177 10^3/uL (150-450); Red Blood Count 3.59 10^6/uL (4.06-5.63); White Blood Count 6.3 10^3/uL (3.6-10.2)
[2023-05-15 17:29] LABS: Albumin 3.8 g/dL (3.2-5.2); Albumin/Globulin Ratio 1.6 (1-3); Creatinine, Serum 0.68 mg/dL (0.67-1.17); Globulin 2.4 g/dL (2-4); Magnesium 1.9 mg/dL (1.9-2.7); Potassium 3.9 mmol/L (3.5-5.0); Total Bilirubin 0.2 mg/dL (0.2-1.0); Total Protein 6.2 g/dL (6.4-8.9)
[2023-05-15 18:07] LABS: TSH Ultra Thyroid Stim Horm 2.03 mcIU/mL (0.34-5.60)
[2023-05-15 18:29] LABS: Urine Appearance Clear; Urine Bilirubin Negative (Negative); Urine Blood Negative (Negative); Urine Color Yellow; Urine Glucose Negative (Negative); Urine Ketones Negative (Negative); Urine Nitrite Negative (Negative); Urine Protein Negative (Negative); Urine Specific Gravity 1.016 (1.002-1.030); Urine Urobilinogen Negative (Negative)
[2023-05-15 18:32] LABS: Urine Bacteria Absent (Absent); Urine Red Blood Cell Trace(0-2/hpf) (Absent); Urine Squamous Epithelial Cell Present (Absent); Urine White Blood Cell Trace(0-5/hpf) (Absent)
[2023-05-15 18:46] LABS: High Sensitivity Troponin 1 Hr 6 pg/mL (<20)
[2023-05-15 20:27] LABS: Hematocrit 32.1 % (38-53); Hemoglobin 11.1 g/dL (13.2-16.3)
[2023-05-16 07:14] LABS: Hematocrit 28.7 % (38-53); Hemoglobin 9.9 g/dL (13.2-16.3); Mean Corpuscular Hemoglobin 31.9 pg (27-33); Mean Corpuscular Hgb Conc 34.5 g/dL (31-36); Mean Corpuscular Volume 92.5 fL (80-97); Mean Platelet Volume 8.1 fL (7.5-11.2); Platelet Count 155 10^3/uL (150-450); Red Blood Count 3.11 10^6/uL (4.06-5.63); Red Cell Distribution Width 15.2 % (12-17); White Blood Count 5.7 10^3/uL (3.6-10.2)
[2023-05-16 07:31] LABS: Calcium 8.5 mg/dL (8.6-10.3); Creatinine, Serum 0.66 mg/dL (0.67-1.17); Magnesium 1.6 mg/dL (1.9-2.7); Potassium 4.1 mmol/L (3.5-5.0); eGFR CKD-EPI 94.8 (>60)
[2023-05-16 07:34] LABS: ABS Eosinophils 0.2 10^3/uL (0.0-0.5); ABS Lymphocytes 1.6 10^3/uL (1.0-4.8); ABS Monocytes 0.5 10^3/uL (0.0-1.1); ABS Neutrophils 3.4 10^3/uL (1.5-7.6); ABS Nucleated RBC 0.01 10^3/ul; Lymphocyte % 28.2 %; Nucleated Red Blood Cells % 0.1 /100 WBC (0.0-0.4)
[2023-05-16] MEDS: CMCS: Epleronone 25 mg TAB (NF) PO SCH (09:24)
[2023-05-16] MEDS ORDERED: fentaNYL 100 mcg/2 ml 50 MCG/ML VIAL ONE (13:47)
[2023-05-16] MEDS ORDERED: Midazolam 10 mg/10 ml VIAL 1 mg/ml 10 ml VIAL (10 mg) ONE (13:47)
[2023-05-16] MEDS ORDERED: Al Hydrox/Mg Hydrox/Simet LIQ 30 ML UDC PO PRN (19:52)
[2023-05-16] MEDS ORDERED: Iohexol 350 (CONTRAST) 500 ML MDV IV ONE (20:05)
[2023-05-17 06:13] LABS: ABS Eosinophils 0.1 10^3/uL (0.0-0.5); ABS Lymphocytes 1.2 10^3/uL (1.0-4.8); ABS Monocytes 0.4 10^3/uL (0.0-1.1); Eosinophil % 2.9 %; Hematocrit 27.9 % (38-53); Hemoglobin 9.7 g/dL (13.2-16.3); Lymphocyte % 25.1 %; Mean Corpuscular Hgb Conc 34.8 g/dL (31-36); Mean Platelet Volume 8.3 fL (7.5-11.2); Platelet Count 148 10^3/uL (150-450); Red Blood Count 3.04 10^6/uL (4.06-5.63); Red Cell Distribution Width 15.1 % (12-17); White Blood Count 4.8 10^3/uL (3.6-10.2)
[2023-05-17 06:32] LABS: Calcium 8.7 mg/dL (8.6-10.3); Creatinine, Serum 0.61 mg/dL (0.67-1.17); eGFR CKD-EPI 97.1 (>60)
[2023-05-17] MEDS: CMCS: Epleronone 25 mg TAB (NF) PO SCH (08:29)
[2023-05-17 10:53] VITALS: BP 141/53
== END 2023-05-17 14:48 | disposition home or self-care (01) ==
LOC: ED 15:28 → EDHOLD 15:28 → MEDTELE 23:43
PROVIDERS: ADMIT Hospitalist; ATTEND Internal Medicine